=== PATIENT | female | born 1995 | race Two or more races ===

== ENCOUNTER → 2018-08-23 | Outpatient (CLI) | payer OTHER ==
--- NOTE | 2018-08-23 12:19 | RAD ---
Right breast ultrasound, 08/23/2018: HISTORY: Breast pain, redness, mastitis The patient reports that the redness and pain has decreased since starting antibiotics. A targeted ultrasound exam was performed of the area of clinical concern from the 1:00 to 4:00 locations. No mass or discrete fluid collection is seen to suggest abscess. Clinical follow-up is suggested. Electronically signed by: Brijesh Hyman MD (08/23/2018 12:16 PM) [facility]
== END | disposition home or self-care (01) ==
LOC: US 11:33
PROVIDERS: ATTEND Family Medicine
DX: N61.0 Mastitis without abscess (principal); N63.12 Unspecified lump in the right breast, upper inner quadrant
CPT/HCPCS: 76641